=== PATIENT | male | born 1995 | race Caucasian/White ===

== ENCOUNTER 2022-11-16 10:05 | Outpatient (CLI) | payer MEDICAID | END 2022-11-16 10:06 | disposition critical access hospital (66) | LOC: EMS 10:05 | DX: L03.116 Cellulitis of left lower limb (principal); M79.662 Pain in left lower leg; R50.9 Fever, unspecified | CPT/HCPCS: A0425; A0429; A0999 ==

== ENCOUNTER 2022-11-16 10:40 | Emergency (ER) | payer MEDICAID, OTHER ==
--- NOTE | 2022-11-16 11:53 | XRAY Report ---
PROCEDURE: Tib/Fib LT INDICATIONS: swelling/pain TECHNIQUE: 2 views of the tibia and fibula were acquired. COMPARISON: None FINDINGS: Bones: No fractures or dislocations. No suspicious bony lesions. Soft tissues: No suspicious soft tissue calcifications or masses. No radiodense foreign body or veronica picious soft tissue gas. IMPRESSION: 1. No bony abnormalities. 2. No visible soft tissue abnormalities. Reviewed by: Keysha Max MD on 11/16/2022 11:51 AM PST Approved by: Keysha Max MD on 11/16/2022 11:51 AM PST Station ID: [id number]
[2022-11-16] MEDS ORDERED: cefTRIAXone 2 GM VIAL IVP STA (13:21)
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
[2022-11-16 14:33] LABS: BASOPHILS # (AUTO) 0.1 10^3/uL (0.0-0.1); BASOPHILS % (AUTO) 0.4 %; EOSINOPHILS % (AUTO) 0.1 %; HGB - HEMOGLOBIN 12.8 g/dL (14.0-18.0); LYMPHOCYTES # (AUTO) 1.1 10^3/uL (1.5-3.5); LYMPHOCYTES % (AUTO) 9.5 %; MEAN CORPUSCULAR HEMOGLOBIN 28.4 pg (27.0-31.0); MEAN CORPUSCULAR HGB CONC 32.8 g/dL (32.0-36.0); MEAN CORPUSCULAR VOLUME 86.5 fL (80.0-94.0); MEAN PLATELET VOLUME 8.8 fL (7.4-11.4); MONOCYTES # (AUTO) 0.7 10^3/uL (0.0-1.0); MONOCYTES % (AUTO) 6.1 %; NEUTROPHILS # (AUTO) 9.7 10^3/uL (1.5-6.6); NEUTROPHILS % (AUTO) 83.6 %; PLT - PLATELET COUNT 210 10^3/uL (130-450); RED BLOOD COUNT 4.51 10^6/uL (4.70-6.10); RED CELL DISTRIBUTION WIDTH 13.5 % (12.0-15.0); WHITE BLOOD COUNT 11.7 x10^3/uL (4.8-10.8)
[2022-11-16 14:47] LABS: ALBUMIN 3.6 g/dL (3.2-5.5); ALBUMIN/GLOBULIN RATIO 0.6 (1.0-2.2); BILIRUBIN,TOTAL 2.6 mg/dL (0.2-1.0); CALCIUM 8.9 mg/dL (8.5-10.3); CREATININE 1.1 mg/dL (0.6-1.2); POTASSIUM 4.1 mmol/L (3.5-5.0); TOTAL PROTEIN 9.3 g/dL (6.7-8.2)
[2022-11-16 15:57] VITALS: BP 110/71
--- NOTE | 2022-11-18 12:03 | ED Physician Documentation ---
ED Addendum - Addendum Addendum: 11/18/22 0375 I spoke on the phone with the patient to discuss the positive blood culture results. Patient stated that he was feeling better and he had fill the prescription for the clindamycin. However he does have a remote history of endocarditis and given his active daily injection drug use he was advised to return to the emergency department for repeat evaluation. He stated that he would.
== END 2022-11-16 16:03 | disposition home or self-care (01) ==
LOC: ED 10:40
DX: L03.116 Cellulitis of left lower limb (principal); R01.1 Cardiac murmur, unspecified; R00.0 Tachycardia, unspecified
CPT/HCPCS: 36415; 80053; 83605; 84145; 85025; 85379; 87040; 87150; 87181; 96374; 99283

== ENCOUNTER 2024-08-03 18:56 | Outpatient (CLI) | payer MEDICAID | END 2024-08-03 23:59 | disposition critical access hospital (66) | LOC: EMS 18:56 | DX: S99.911A Unspecified injury of right ankle, initial encounter (principal); W17.81XA Fall down embankment (hill), initial encounter; Y92.828 Other wilderness area as the place of occurrence of the external cause; Z59.01 Sheltered homelessness | CPT/HCPCS: A0425; A0429; A0999 ==

== ENCOUNTER 2024-08-03 19:19 | Emergency (ER) | payer MEDICAID ==
--- NOTE | 2024-08-03 20:26 | XRAY Report ---
PROCEDURE: Ankle 3+V RT INDICATIONS: twisting inj/"pop"/pain/hard to bear wt TECHNIQUE: 4 views of the ankle were acquired. COMPARISON: None. FINDINGS: Bones: Fracture at the medial malleolus. Mild displacement. Fracture fragment at the posterior ankle joint. This could represent a fragment from the distal fibula or posterior malleolus. Horizontal fra cture at the distal fibula at or below the syndesmosis. No dislocations. Ankle mortise is normally a ligned. No suspicious bony lesions. Soft tissues: Small tibiotalar joint effusion. Achilles tendon appears normal. IMPRESSION: Medial malleolus fracture. Distal fibula fracture. Probable posterior malleolus fracture. Findings most consistent with Elizalde B fracture. Reviewed by: Jim Stevens MD on 08/03/2024 8:25 PM PDT Approved by: Jim Stevens MD on 08/03/2024 8:25 PM PDT Station ID: [id number]
--- NOTE | 2024-08-03 20:34 | ED Physician Documentation ---
PD HPI LOWER EXT INJURY - Stated complaint Stated Complaint: R ANKLE PX - Chief complaint Chief Complaint: Trauma Ext - History obtained from History obtained from: Patient, EMS - Additional information Additional information: The patient is brought to the emergency department by EMS for chief complaint of right ankle pain after a twisting injury. He states [place], when a branch he was holding onto broke and he fell to the ground, twisting his right ankle. He states he felt a "pop" and instant pain. He states he was unable to bear any weight on the right lower extremity afterward, secondary to extreme pain. No other injuries. The patient states that he does not have any history of prior fracture to the area. No prior sprains. No other complaints at this time. PD PAST MEDICAL HISTORY - Present Medications Home Medications: Ambulatory Orders Medication Instructions Recorded Confirmed HYDROcod/ACETAM 5/325 [[place] 5/325] 1 - 2 tablet PO Q6H PRN #14 tablet 08/03/24 - Allergies Allergies/Adverse Reactions: Allergies Allergy/AdvReac Type Severity Reaction Status Date / Time furosemide [From Lasix] Allergy Hives Verified 08/04/24 02:30 Sulfa (Sulfonamide Allergy Rash Verified 08/04/24 02:30 Antibiotics) - Social History Does the pt smoke?: Yes Smoking Status: Current every day smoker Does the pt drink ETOH?: Yes Does the pt have substance abuse?: Yes - POLST Patient has POLST: No PD ED PE NORMAL - Vitals Vital signs reviewed: Yes - General General: Alert and oriented X 3, No acute distress, Well developed/nourished, Other (The patient is disheveled but alert and cooperative.) - HEENT HEENT: Atraumatic, EOMI, Moist mucous membranes - Neck Neck: Supple, no meningeal sign - Cardiac Cardiac: RRR, Other (2 out of 6 systolic murmur; Intact posterior tibial and dorsalis pedis pulses right foot) - Respiratory Respiratory: No respiratory distress - Derm Derm: Warm and dry, Other (Chronic scarring but no acute appearing lesions.) - Extremities Extremities: No deformity, Other (Moderate edema about the right ankle involving both the medial and lateral malleolar areas. Tenderness to palpation diffusely around right ankle but not over proximal right lower leg. Able to move toes.) - Neuro Neuro: Alert and oriented X 3, No motor deficit, No sensory deficit, Other (Neurologically intact in right foot.) - Psych Psych: Normal mood, Normal affect Results - Vitals Vitals: Oxygen O2 Source Room air - Rads (name of study) R ankle XR Relevant Findings:: Final report received, See rad report (Bimalleolar, possibly trimalleolar fx) CT R ankle Relevant Findings:: Final report received, See rad report (bimalleolar fracture) Procedures - Splint (location) - Minor R ankle Splint applied by: Tech Type of splint: Fiberglass, Other (bulky Peterson) Other: Patient tolerated well, No complications, Neurovascular intact, Crutches provided PD Medical Decision Making - ED course Complexity details: reviewed results, re-evaluated patient, considered differential, d/w patient ED course: Plain films were obtained of the patient's right ankle and showed what appeared to be fractures of both the distal tibia and the distal fibula but not with clear widening of ankle mortise on my evaluation. Patient was splinted with a bulky Peterson splint and sent for CT of the right ankle. He was treated symptomatically with IM Dilaudid. He was found to have a bimalleolar fracture on CT. I have d/w pt that while this will not require emergent surgery, it will almost certainly require some surgical intervention in order to heal properly. The pt is willing to follow up, and states he can get a ride. He understands he must remain NWB during the healing process, until ortho clears him. I have prescribed analgesia for him. Departure - Departure Disposition: 01 Home, Self Care Clinical Impression: Bimalleolar avulsion fracture of right ankle Condition: Stable Instructions: ED Fx Ankle General Follow-Up: Tomás Brannon MD [Provider Admit Priv/Credential] - KORI WHITTAKER MD [Physician No Access] - Prescriptions: HYDROcod/ACETAM 5/325 [[place] 5/325] 1 - 2 tablet PO Q6H PRN #14 tablet PRN Reason: Pain Comments: Your CT scan and x-ray show fractures of both of your lower leg bones at the ankle joint. These fractures will require surgery though not emergently tonight. You will need to call the orthopedic office tomorrow morning to set up an appointment as unfortunately, we do not have an orthopedic surgeon on-call tonight. I have sent a prescription for pain medication to the [facility] pharmacy in [place]. You will need to keep the splint in place until you are seen by orthopedics. You should not bear any weight on your right leg, but should use the crutches at all times. Forms: PCP List Discharge Date/Time: 08/03/24 22:28
[2024-08-03] MEDS: HYDROmorphone 1 MG/ML CARPUJECT IM STA (20:44)
[2024-08-03 22:36] VITALS: BP 132/66; O2SAT 98
--- NOTE | 2024-08-03 22:45 | CT Report ---
PROCEDURE: Lower Extremity RT WO INDICATIONS: tib-fib fracture TECHNIQUE: Noncontrast 3-mm axial sections acquired from the distal tibial shaft to the talar dome, with coronal and sagittal reformats. For radiation dose reduction, the following was used: automated exposure c ontrol, adjustment of mA and/or kV according to patient size. COMPARISON: Same day right ankle radiographs. FINDINGS: Image quality: Excellent. Bones: Comminuted fracture of the medial malleolus. Fracture line is vertical. Mild dysplasia. Horiz ontal fracture of the distal fibula at the level of the syndesmosis. Small fracture fragment posterio r to the fibular fracture. No posterior malleolus fracture. The talus appears mildly displaced medial ly in relation to the distal tibia. No suspicious osseous lesion. Soft tissues: Bimalleolar swelling. No suspicious soft tissue calcifications. Impression: Bimalleolar ankle fracture. Reviewed by: Jim Stevens MD on 08/03/2024 10:44 PM PDT Approved by: Jim Stevens MD on 08/03/2024 10:44 PM PDT Station ID: [id number]
== END 2024-08-03 22:28 | disposition home or self-care (01) ==
LOC: EDUNIT# → ED 19:19
DX: S82.841A Displaced bimalleolar fracture of right lower leg, initial encounter for closed fracture (principal); X50.1XXA Overexertion from prolonged static or awkward postures, initial encounter; Y93.01 Activity, walking, marching and hiking; Y92.89 Other specified places as the place of occurrence of the external cause; F17.200 Nicotine dependence, unspecified, uncomplicated
CPT/HCPCS: 29515; 73610; 73700; 96372; 99284; J1170

== ENCOUNTER 2024-08-04 02:13 | Emergency (ER) | payer MEDICAID ==
[2024-08-04] MEDS: HYDROmorphone 1 MG/ML CARPUJECT IM STA (02:49)
[2024-08-04] MEDS: KETOROLAC 60 MG/2 ML VIAL IM STA (02:49)
--- NOTE | 2024-08-04 02:57 | ED Physician Documentation ---
History of Present Illness - Stated complaint Stated Complaint: R LEG PX - Chief complaint Chief Complaint: Ext Problem - History obtained from History obtained from: Patient - Additonal information Additional information: The patient comes to the emergency department chief complaint of right leg pain. He was seen earlier in the emergency department and diagnosed with a right ankle fracture, but had return to the emergency department as the visitor for another patient. While here, he was experiencing some pain in his ankle and felt the medication we gave him while he was the patient in the ED had worn off and decided to check back in so he could get another dose pain medication. The patient was discharged from the ED after pharmacies had closed and has not yet been able to get to the pharmacy to get pain medication. No other complaints at this time. No numbness or tingling in his toes. PD PAST MEDICAL HISTORY - Past Medical History Past Medical History: Yes Cardiovascular: Other Other Past Medical History: Endocarditis - Past Surgical History Past Surgical History: Yes - Present Medications Home Medications: Ambulatory Orders Medication Instructions Recorded Confirmed HYDROcod/ACETAM 5/325 [[place] 5/325] 1 - 2 tablet PO Q6H PRN #14 tablet 08/03/24 - Allergies Allergies/Adverse Reactions: Allergies Allergy/AdvReac Type Severity Reaction Status Date / Time furosemide [From Lasix] Allergy Hives Verified 08/04/24 02:30 Sulfa (Sulfonamide Allergy Rash Verified 08/04/24 02:30 Antibiotics) - Social History Does the pt smoke?: Yes Smoking Status: Current every day smoker Does the pt drink ETOH?: Yes Does the pt have substance abuse?: Yes Substance Use and Type: Meth, Other - Immunizations Immunizations are current?: No Immunizations: TDAP >10years/unknown - POLST Patient has POLST: No PD ED PE NORMAL - Vitals Vital signs reviewed: Yes - General General: No acute distress, Well developed/nourished, Other (Alert, grossly intact.) - HEENT HEENT: Atraumatic - Neck Neck: Supple, no meningeal sign - Respiratory Respiratory: No respiratory distress - Derm Derm: Normal color, Warm and dry, No rash - Extremities Extremities: No deformity, No edema - Neuro Neuro: Other (Alert, appropriate, good sensation in right toes.) - Psych Psych: Normal mood, Normal affect Results - Vitals Vitals: Vital Signs - 24 hr 08/04/24 08/04/24 02:19 03:04 Temperature 36.8 C 36.2 C L Heart Rate 76 98 Respiratory 16 16 Rate Blood Pressure 129/75 122/67 O2 Saturation 100 98 Oxygen O2 Source Room air PD Medical Decision Making - ED course Complexity details: considered differential, d/w patient ED course: The patient was given a dose of pain medication here in the emergency department. He was feeling better and was stable for discharge home. He is advised to go to the pharmacy and picker / packer the medications prescribed, when the pharmacy opens later this morning. Departure - Departure Disposition: 01 Home, Self Care Clinical Impression: Pain in extremity Qualifiers: Extremity pain location: lower leg Laterality: right Qualified Code(s): M79.661 - Pain in right lower leg Ankle fracture Qualifiers: Encounter type: initial encounter Fracture type: closed Laterality: right Qualified Code(s): S82.891A - Other fracture of right lower leg, initial encounter for closed fracture Condition: Stable Instructions: ED Fx Ankle General Forms: PCP List Discharge Date/Time: 08/04/24 03:04
[2024-08-04 03:06] VITALS: BP 122/67; O2SAT 98
== END 2024-08-04 03:04 | disposition home or self-care (01) ==
LOC: ED 02:13
DX: M79.661 Pain in right lower leg (principal); F17.200 Nicotine dependence, unspecified, uncomplicated
CPT/HCPCS: 96372; 99283; J1170